=== PATIENT | female | born 1970 | race Caucasian/White ===

== ENCOUNTER 2019-06-19 11:31 | Inpatient (IN) | payer MEDICAID ==
[2019-06-19] MEDS ORDERED: Sodium Chloride 0.9% 10 ML Syringe FLUSH PRN (12:42)
[2019-06-19] MEDS: Dextrose 5%-0.45% NaCl 1,000 ML IV SCH ×2 (13:25→22:53)
[2019-06-19] MEDS: cefTRIAXone 1 GM Vial IVPUSH SCH (13:34)
[2019-06-19] MEDS ORDERED: FLU Vacc QS2019-20(6MOS+)/PF 60 MCG/0.5 ML SYRINGE IM ONE (14:00)
[2019-06-19] MEDS: Albuterol/Ipratropium 3.0-0.5 MG/3 ML Neb Soln NEB PRN ×2 (14:12→20:47)
[2019-06-19] MEDS: Azithromycin 250 MG Tab PO SCH (15:36)
[2019-06-19] MEDS: Acetaminophen 325 MG Tab PO PRN (15:38)
[2019-06-19] MEDS: guaiFENesin/Dextromethorphan 100-10 MG/5 ML Soln 5 ML Cup PO PRN (15:43)
[2019-06-19] MEDS ORDERED: Albuterol 8 GM Inhaler INH PRN (21:01)
[2019-06-19] MEDS ORDERED: Acetaminophen 325 MG Tab PO PRN (21:01)
[2019-06-19] MEDS: Metoprolol Tartrate 25 MG Tab PO SCH (22:24)
[2019-06-19] MEDS: buPROPion 150 MG Tab.ER PO SCH (22:24)
[2019-06-19] MEDS: Naltrexone 50 MG Tab PO SCH (22:24)
[2019-06-19] MEDS: Diazepam 5 MG Tab PO SCH (22:24)
[2019-06-20] MEDS: guaiFENesin/Dextromethorphan 100-10 MG/5 ML Soln 5 ML Cup PO PRN ×4 (00:05→22:11)
[2019-06-20] MEDS: Acetaminophen 325 MG Tab PO PRN ×2 (06:01→13:53)
[2019-06-20] MEDS: Levothyroxine 50 MCG Tab PO SCH ×2 (06:04→06:34)
[2019-06-20] MEDS: Albuterol/Ipratropium 3.0-0.5 MG/3 ML Neb Soln NEB PRN (06:10)
[2019-06-20 07:45] LABS: ANION GAP 12.3 mmol/L (5-15); CHLORIDE,CL 102 mmol/L (98-115); SODIUM,NA 141 mmol/L (136-145)
[2019-06-20] MEDS: Metoprolol Tartrate 25 MG Tab PO SCH ×2 (08:36→20:46)
[2019-06-20] MEDS: Venlafaxine 37.5 MG Cap.ER PO SCH (08:36)
[2019-06-20] MEDS: Omeprazole 20 MG Cap.CR PO SCH (08:38)
[2019-06-20] MEDS: Azithromycin 250 MG Tab PO SCH (08:38)
[2019-06-20] MEDS: Fluticasone Propionate Nasal Spray 16 GM Bottle NASBOTH SCH (08:39)
[2019-06-20] MEDS: Formoterol/Mometasone 100-5 MCG 8.8 GM Inhaler IH SCH ×2 (08:54→20:48)
[2019-06-20] MEDS ORDERED: BREXPIPRAZOLE 0.5 MG PO SCH (09:00)
[2019-06-20] MEDS ORDERED: Enoxaparin 60 MG/0.6 ML Syringe SUBCUT ONE (09:14)
[2019-06-20] MEDS ORDERED: Sodium Chloride 0.9% 1,000 ML IV SCH (09:15)
--- NOTE | 2019-06-20 09:20 | PCM.PN ---
- General Info Date of Service: 06/20/19 Functional Status: Reports: Urinating, Incentive Spirometry. Denies: Tolerating Diet, Ambulating, New Symptoms - Review of Systems General: Reports: Fever (T max 101.3), Weakness, Fatigue, Malaise, Chills, Night Sweats. Denies: Appetite HEENT: Reports: Post Nasal Drip. Denies: Headaches, Visual Changes Pulmonary: Reports: Shortness of Breath, Cough, Wheezing Gastrointestinal: Reports: Nausea Genitourinary: Reports: No Symptoms Musculoskeletal: Reports: No Symptoms Skin: Reports: Diaphoresis. Denies: Rash Neurological: Denies: Confusion Psychiatric: Reports: No Symptoms - Patient Data Vitals - Most Recent: Last Vital Signs Temp 98.6 F 06/20/19 06:12 Pulse 64 06/20/19 08:36 Resp 24 H 06/20/19 06:12 BP 115/68 06/20/19 08:36 Pulse Ox 95 06/20/19 06:12 Weight - Most Recent: 270 lb I&O - Last 24 Hours: Intake & Output 06/19/19 06/20/19 06/20/19 22:59 06:59 14:59 Intake Total 950 1156 Balance 950 1156 Lab Results Last 24 Hours: Laboratory Results - last 24 hr 06/20/19 06/20/19 Range/Units 07:12 07:12 WBC 9.55 (5.00-10.00) 10^3/uL RBC 4.03 (3.80-5.50) 10^6/uL Hgb 9.6 L (12.0-16.0) g/dL Hct 31.1 L (37.0-47.0) % MCV 77.2 L (82.0-92.0) fL MCH 23.8 L (27.0-31.0) pg MCHC 30.9 L (32.0-36.0) g/dL RDW 17.4 H (11.5-14.5) % Plt Count 308 (150-400) 10^3/uL MPV 9.3 (7.4-10.4) fL Immature Gran % (Auto) 0.4 (0.0-5.0) % Neut % (Auto) 67.6 (50.0-70.0) % Lymph % (Auto) 20.0 (20.0-40.0) % Will % (Auto) 10.3 H (2.0-8.0) % Eos % (Auto) 1.3 (1.0-3.0) % Baso % (Auto) 0.4 (0.0-1.0) % Immature Gran # (Auto) 0.04 (0.00-0.50) 10^3/uL Neut # (Auto) 6.46 (2.50-7.00) 10^3/uL Lymph # (Auto) 1.91 (1.00-4.00) 10^3/uL Will # (Auto) 0.98 H (0.10-0.80) 10^3/uL Eos # (Auto) 0.12 (0.10-0.30) 10^3/uL Baso # (Auto) 0.04 (0.00-0.10) 10^3/uL Sodium 141 (136-145) mmol/L Potassium 3.3 (3.3-5.3) mmol/L Chloride 102 (98-115) mmol/L Carbon Dioxide 30.0 (21.0-32.0) mmol/L Anion Gap 12.3 (5-15) mmol/L BUN 8 (6-25) mg/dL Creatinine 0.95 (0.51-1.17) mg/dL Est Cr Clr Drug Dosing 65.88 mL/min Estimated GFR (MDRD) > 60 mL/min Glucose 139 H (75 - 99) mg/dL Calcium 8.5 L (8.7-10.3) mg/dL Total Bilirubin 0.2 (0.2-1.0) mg/dL AST 43 H (15-37) U/L ALT 30 (12-78) U/L Alkaline Phosphatase 77 (46-116) IU/L Total Protein 7.2 (6.4-8.2) g/dL Albumin 2.65 L (3.00-4.80) g/dL Med Orders - Current: Current Medications Acetaminophen (Tylenol) 650 mg PO Q4H PRN PRN Reason: fever/pain Last Admin: 06/20/19 06:01 Dose: 650 mg Albuterol (Ventolin Hfa) 0 gm INH Q4HR PRN PRN Reason: sob Albuterol/Ipratropium (Duoneb 3.0-0.5 Mg/3 Ml) 3 ml NEB Q6HR PRN PRN Reason: Shortness Of Breath/wheezing Last Admin: 06/20/19 06:10 Dose: 3 ml Azithromycin (Zithromax) 250 mg PO DAILY [facility] Stop: 06/22/19 09:01 Last Admin: 06/20/19 08:38 Dose: 250 mg Bupropion HCl (Wellbutrin Xl) 150 mg PO BEDTIME [facility] Last Admin: 06/19/19 22:24 Dose: 150 mg Ceftriaxone Sodium (Rocephin) 1 gm IVPUSH Q24H [facility] Last Admin: 06/19/19 13:34 Dose: 1 gm Diazepam (Valium.) 5 mg PO BEDTIME [facility] Last Admin: 06/19/19 22:24 Dose: 5 mg Fluticasone Propionate (Flonase) 0 gm NASBOTH DAILY [facility] Last Admin: 06/20/19 08:39 Dose: 2 spray Guaifenesin/Phenylephrine HCl (Robitussin Dm) 10 ml PO Q6H PRN PRN Reason: Cough Last Admin: 06/20/19 08:39 Dose: 10 ml Dextrose/Sodium Chloride (Dextrose 5%-1/2 Ns) 1,000 mls @ 100 mls/hr IV ASDIRECTED [facility] Last Admin: 06/19/19 22:53 Dose: 100 mls/hr Levothyroxine Sodium (Synthroid) 50 mcg PO ACBREAKFAST [facility] Last Admin: 06/20/19 06:34 Dose: Not Given Metoprolol Tartrate (Lopressor) 25 mg PO BID [facility] Last Admin: 06/20/19 08:36 Dose: 25 mg Mometasone Furoate/Formoterol Fumar (Dulera 100-5 Mcg) 2 puff IH BIDRT [facility] Last Admin: 06/20/19 08:54 Dose: 2 puff Naltrexone HCl (Naltrexone) 50 mg PO BEDTIME [facility] Last Admin: 06/19/19 22:24 Dose: 50 mg Non-Formulary Medication (Brexpiprazole [Rexulti]) 0.5 mg PO DAILY [facility] Omeprazole (Omeprazole) 40 mg PO DAILY [facility] Last Admin: 06/20/19 08:38 Dose: 40 mg Sodium Chloride (Saline Flush) 10 ml FLUSH Q8HR PRN PRN Reason: keep vein open Last Admin: 06/19/19 13:33 Dose: 10 ml Venlafaxine HCl (Effexor Xr) 225 mg PO DAILY [facility] Last Admin: 06/20/19 08:36 Dose: 225 mg Discontinued Medications Influenza Virus Vaccine (Pharmacy To Dose - Influenza Vaccine) 1 each IM ONETIME ONE Stop: 06/19/19 13:52 Influenza Virus Vaccine (Fluzone Quad 0090-1989 Syringe) 60 mcg IM .ONCE ONE Stop: 06/19/19 14:01 Last Admin: 06/19/19 16:39 Dose: Not Given - Exam Quality Assessment: Supplemental Oxygen (1 Liter oxygen--) General: Alert, Oriented, No Acute Distress Neck: No JVD Lungs: Wheezing Cardiovascular: Regular Rate, Regular Rhythm GI/Abdominal Exam: Soft. No: Distended Back Exam: No: CVA Tenderness (L) Extremities: No: Pedal Edema Peripheral Pulses: 1+: Radial (R), 2+: Radial (L) Skin: Warm, Intact, Moist Psy/Mental Status: Alert, Normal Affect, Normal Mood - Problem List Review Problem List Initiated/Reviewed/Updated: Yes - My Orders Last 24 Hours: My Active Orders 06/19/19 12:55 RESPIRATORY CULT [MREF] Routine 06/19/19 21:00 Metoprolol Tartrate [Lopressor] 25 mg PO BID Naltrexone 50 mg PO BEDTIME buPROPion [Wellbutrin XL] 150 mg PO BEDTIME 06/19/19 21:01 Albuterol [Ventolin HFA] 0 gm INH Q4HR PRN 06/19/19 21:11 diazePAM [Valium] 5 mg PO BEDTIME 06/20/19 07:30 Levothyroxine [Synthroid] 50 mcg PO ACBREAKFAST 06/20/19 08:43 Mometasone/Formoterol [Dulera 100-5 MCG] 2 puff IH BIDRT 06/20/19 09:00 Brexpiprazole [Rexulti] 0.5 mg PO DAILY Fluticasone Propionate [Flonase] 0 gm NASBOTH DAILY Omeprazole 40 mg PO DAILY Venlafaxine [Effexor XR] 225 mg PO DAILY - Plan Plan:: Brief history, see history of present illness for full history/workup. 49-year- old morbid obese patient with a history of asthma was admitted yesterday into inpatient status by Uriah Bucholz PAC for concerns of pneumonia. She was evaluated on June 18 [facility] due to weakness fatigue fevers along with a unproductive/dry cough, diaphoresis decrease appetite. Subsequent labs and chest x-ray indicative of bacterial infection with elevated white count~25, 000, neutrophilia. Chest x-ray appearance of right middle lobe infiltrate. Rounds today No Overnight calls/concerns, patient did not sleep well, temperature early on admission 101.3--now afebrile, overall is feeling better however mildly diaphoretic with poor appetite. Morbid productive cough today. Requiring 1 L oxygen Consulted with patient's pharmacist today. No record of recent description/ refills of Advair. Primary hospital problems Pneumonia,RML, CAP, likely bacterial etiology Asthma, seasonal allergies, mild exacerbation Chronic problems KEVIN, asthma, sleep disturbance, morbid obesity, confounding/contributor Depression GERD Disposition/overall plan/discharge planning --By mouth azithromycin, Rocephin --Prednisone 40 mg PO --Changed to normal saline, Saline lock tonight --Anticipate discharge self-correction in the a.m. --Aggressive pulmonary toileting, Resp c/s to assess CPAP/cleaning schedule/ titrate from oxygen, ambulation, OOB --Nasal/influenza swab 2/2 asthma --Add LMWH, LEYDA/SCD Recommendations at follow-up --She will require extensive motivational interviewing with close follow-up care for intensive lifestyle modifications/eduation --weight loss management, recommend bariatric surgical consultation --mgt plan to begin to titrate from chronic valium --Medication compliance recommendations as no record of recent Advair refills, --Psyche referral --Asthma control test/plan --Influenza vaccination on follow-up --Lipid screening/Diabetes screening since high risk/comorbidity/obesity
[2019-06-20] MEDS ORDERED: Doxepin 25 MG Cap PO PRN (09:21)
[2019-06-20] MEDS: predniSONE 20 MG Tab PO SCH (10:19)
[2019-06-20] MEDS: cefTRIAXone 1 GM Vial IVPUSH SCH (13:55)
[2019-06-20] MEDS: buPROPion 150 MG Tab.ER PO SCH (20:46)
[2019-06-20] MEDS: Diazepam 5 MG Tab PO SCH (20:46)
[2019-06-20] MEDS: Naltrexone 50 MG Tab PO SCH (20:46)
[2019-06-21] MEDS: guaiFENesin/Dextromethorphan 100-10 MG/5 ML Soln 5 ML Cup PO PRN ×2 (06:06→12:58)
[2019-06-21] MEDS: Levothyroxine 50 MCG Tab PO SCH (06:30)
[2019-06-21] MEDS: predniSONE 20 MG Tab PO SCH (07:43)
[2019-06-21] MEDS: Formoterol/Mometasone 100-5 MCG 8.8 GM Inhaler IH SCH (07:44)
[2019-06-21] MEDS: Venlafaxine 37.5 MG Cap.ER PO SCH (08:25)
[2019-06-21] MEDS: Fluticasone Propionate Nasal Spray 16 GM Bottle NASBOTH SCH (08:25)
[2019-06-21] MEDS: Omeprazole 20 MG Cap.CR PO SCH (08:26)
[2019-06-21] MEDS: Azithromycin 250 MG Tab PO SCH (08:26)
[2019-06-21] MEDS: Metoprolol Tartrate 25 MG Tab PO SCH (08:26)
[2019-06-21] MEDS ORDERED: FLU Vacc QS2019-20(6MOS+)/PF 60 MCG/0.5 ML SYRINGE IM ONE (09:00)
[2019-06-21] MEDS: cefTRIAXone 1 GM Vial IVPUSH SCH (12:44)
[2019-06-21] MEDS: Albuterol/Ipratropium 3.0-0.5 MG/3 ML Neb Soln NEB PRN (12:57)
[2019-06-21 15:45] VITALS: BP 112/57; PULSE 63
== END 2019-06-21 18:10 | disposition home or self-care (01) | DRG 194 ==
LOC: KA.MS 12:07
PROVIDERS: ADMIT Physician Assistant; ATTEND Family Medicine
DX: J18.9 Pneumonia, unspecified organism (principal); J45.901 Unspecified asthma with (acute) exacerbation; Z68.44 Body mass index [BMI] 60.0-69.9, adult; J45.40 Moderate persistent asthma, uncomplicated; J40 Bronchitis, not specified as acute or chronic; Z79.82 Long term (current) use of aspirin; Z79.899 Other long term (current) drug therapy; E66.01 Morbid (severe) obesity due to excess calories; G47.33 Obstructive sleep apnea (adult) (pediatric); F32.9 Major depressive disorder, single episode, unspecified; K21.9 Gastro-esophageal reflux disease without esophagitis
CPT/HCPCS: 36415; 80053; 85025; 87040; 87070; 87205; 87804; 94640; A9270-GY; J0696; J1650; J7030; J7042; J7620-GY

== ENCOUNTER 2020-01-13 06:59 | Day surgery (SDC) | payer MEDICAID, OTHER ==
[2020-01-13] MEDS ORDERED: Sodium Chloride 0.9% 10 ML Syringe FLUSH PRN (07:00)
[2020-01-13] MEDS ORDERED: Lidocaine 2% 100 MG/5 ML Syringe IVPUSH ONE (07:00)
[2020-01-13] MEDS ORDERED: Propofol 200 MG/20 ML SDV IV ONE (07:00)
[2020-01-13] MEDS ORDERED: Sodium Chloride 0.9% 1,000 ML IV SCH (07:00)
[2020-01-13] MEDS ORDERED: Ketamine 200 MG/20 ML MDV IV ONE (07:00)
[2020-01-13] MEDS ORDERED: Midazolam 1 MG/ML 2 ML SDV IV ONE (07:00)
[2020-01-13] MEDS ORDERED: Midazolam 1 MG/ML 2 ML SDV ONE (07:04)
[2020-01-13] MEDS ORDERED: Ketamine 200 MG/20 ML MDV ONE (07:04)
[2020-01-13] MEDS ORDERED: Propofol 200 MG/20 ML SDV ONE (07:04)
[2020-01-13] MEDS ORDERED: Lidocaine 2% 100 MG/5 ML Syringe ONE (07:05)
--- NOTE | 2020-01-13 08:32 | PCM.PRNOTE ---
- Free Text/Narrative Note: PROCEDURE PERFORMED: Esophagogastroduodenoscopy with biopsy PRE-PROCEDURE DIAGNOSIS/INDICATION FOR PROCEDURE: Iron deficiency anemia, persistent epigastric pain despite PPI CONSENT: Informed consent was obtained prior to the procedure after discussion of the risks (including pain, bleeding, infection, perforation, need for further procedures, adverse reaction to anesthesia, cardiovascular event), benefits and alternatives and expected outcomes. Verbal consent given and consent form signed. PROCEDURAL PAUSE: Completed SEDATION: Per anesthesia DESCRIPTION OF PROCEDURE: Patient was brought back to the operating room and placed in a left lateral decubitus position. Bite block placed. After adequate sedation and anesthetic was administered, endoscope was inserted into the patient's mouth and was passed easily through the esophagus and stomach into the duodenum without difficulty. Examined duodenum normal appearing. Pylorus normal appearing; biopsies obtained to assess for H.pylori. Stomach, including viewing in retroflexion, normal appearing. 3cm hiatal hernia was present with the gastroesophageal junction at 36cm from the incisors and diaphragmatic at 39cm. Esophagus normal appearing. The scope was removed without difficulty. Patient tolerated the procedure well. No complications. IMPRESSION: Esophagogastroduodenoscopy performed revealing 3cm hiatal hernia. Pathology now pending for H.pylori assessment. PLAN: - Will contact the patient when pathology results received. - Especially with CT abdomen/pelvis revealing cholelithiasis, recommend RUQ ultrasound to further evaluate epigastric pain and consider surgical consultation for cholecystectomy. - Recommend future colonoscopy given last colonoscopy 01/2017 revealing 1cm SSA in the rectosigmoid colon.
[2020-01-13 09:05] VITALS: BP 121/68; PULSE 96
== END 2020-01-13 09:30 | disposition home or self-care (01) ==
LOC: KA.SDS 06:59
PROVIDERS: ATTEND Family Medicine
DX: K44.9 Diaphragmatic hernia without obstruction or gangrene (principal); D50.9 Iron deficiency anemia, unspecified; Z11.59 Encounter for screening for other viral diseases; E11.65 Type 2 diabetes mellitus with hyperglycemia; Z79.899 Other long term (current) drug therapy; K21.9 Gastro-esophageal reflux disease without esophagitis; G47.33 Obstructive sleep apnea (adult) (pediatric); E66.01 Morbid (severe) obesity due to excess calories; Z68.41 Body mass index [BMI] 40.0-44.9, adult; Z79.82 Long term (current) use of aspirin
CPT/HCPCS: 43239; 81025; 82962; 87635; J2001; J2250; J2704; J7030; U0002

== ENCOUNTER 2020-08-01 18:14 | Observation (INO) | payer MEDICAID ==
[2020-08-01] MEDS ORDERED: 50% Dextrose in Water 50 ML Syringe ONE (18:46)
[2020-08-01] MEDS ORDERED: 50% Dextrose in Water 50 ML Syringe IVPUSH ONE (18:57)
[2020-08-01 19:28] LABS: ANION GAP 13.6 mmol/L (5-15); CHLORIDE,CL 98 mmol/L (98-115); SODIUM,NA 136 mmol/L (136-145)
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
[2020-08-01] MEDS ORDERED: Non-Formulary Medication 1 Each (Albuterol 2 PUFF) INH PRN (22:07)
[2020-08-01] MEDS ORDERED: BUPROPION HCL 200 MG PO SCH (22:15)
[2020-08-01] MEDS ORDERED: Sodium Chloride 0.9% 10 ML Syringe FLUSH PRN (22:18)
[2020-08-01] MEDS ORDERED: Albuterol 8 GM Inhaler INH PRN (22:38)
[2020-08-01] MEDS: Metoprolol Succinate 50 MG Tab.ER PO SCH (22:59)
[2020-08-01] MEDS ORDERED: Formoterol/Mometasone 200-5 MCG 8.8 GM Inhaler IH ONE (23:00)
[2020-08-01] MEDS ORDERED: Venlafaxine 37.5 MG Cap.ER PO ONE (23:00)
[2020-08-01] MEDS ORDERED: Venlafaxine 150 MG Cap.ER PO ONE (23:00)
[2020-08-01] MEDS ORDERED: VENLAFAXINE 75 MG PO ONE (23:00)
[2020-08-01] MEDS ORDERED: Montelukast 10 MG Tab PO ONE (23:00)
[2020-08-02] MEDS ORDERED: Lidocaine 2% 100 MG/5 ML Syringe IVPUSH PRN (05:45)
[2020-08-02] MEDS ORDERED: Atropine 0.1 MG/ML 10 ML Syringe IVPUSH PRN (05:45)
[2020-08-02] MEDS ORDERED: Nitroglycerin 0.4 MG Tab.SL SL PRN (05:45)
[2020-08-02] MEDS ORDERED: EPINEPHrine 1:10,000 1 MG/10 ML Syringe IVPUSH PRN (05:45)
[2020-08-02] MEDS: Acetaminophen 325 MG Tab PO PRN ×2 (05:52→11:32)
[2020-08-02] MEDS: guaiFENesin/Dextromethorphan 100-10 MG/5 ML Soln 5 ML Cup PO PRN ×2 (05:52→11:32)
[2020-08-02] MEDS: Levothyroxine 50 MCG Tab PO SCH ×2 (05:53→06:30)
[2020-08-02 07:21] LABS: ANION GAP 13.9 mmol/L (5-15); CHLORIDE,CL 100 mmol/L (98-115); SODIUM,NA 136 mmol/L (136-145)
[2020-08-02] MEDS ORDERED: Formoterol/Mometasone 200-5 MCG 8.8 GM Inhaler IH SCH (08:00)
[2020-08-02] MEDS: Metoprolol Succinate 50 MG Tab.ER PO SCH (08:17)
[2020-08-02 08:20] VITALS: PULSE 66
[2020-08-02] MEDS ORDERED: BUPROPION HCL 200 MG PO SCH (09:00)
[2020-08-02] MEDS ORDERED: Omeprazole 20 MG Cap.CR PO SCH (09:00)
[2020-08-02] MEDS ORDERED: Iron Polysaccharides Complex 150 MG Cap PO SCH (09:00)
[2020-08-02 10:14] VITALS: BP 136/85
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
--- NOTE | 2020-08-02 12:19 | PCM.DCSUM1 ---
Discharge Summary - Discharge Data Discharge Date: 08/02/20 Discharge Disposition: Home, Self-Care 01 Condition: Good - Referral to Home Health Primary Care Physician: Orlando Parsons [employer] TECHNICIAN - Discharge Plan Home Medications: Home Meds Albuterol Sulfate [Proair Hfa] 2 puff INH Q4HR PRN 04/25/16 [History] Doxepin [SINEquan] 75 mg PO BEDTIME PRN 04/25/16 [History] Fluticasone Propionate [Flonase] 1 spray INH BID PRN 04/25/16 [History] Omeprazole 20 mg PO DAILY 04/25/16 [History] Venlafaxine [Effexor XR] 75 mg PO BEDTIME 04/25/16 [History] Levothyroxine [Synthroid] 50 mcg PO ACBREAKFAST #60 tablet 04/26/16 [Rx] diazePAM [Valium] 10 mg PO BEDTIME 01/02/19 [History] Acetaminophen [Tylenol] 650 mg PO Q4H PRN tablet 01/03/19 [Rx] Albuterol/Ipratropium [DuoNeb 3.0-0.5 MG/3 ML] 3 ml INH Q6H PRN 01/09/20 [History] Iron Polysaccharides Complex [Ferrex 150] 150 mg PO DAILY 01/09/20 [History] Metoprolol Succinate [Toprol Xl] 25 mg PO BID 01/09/20 [History] Montelukast Sodium [Singulair] 10 mg PO BEDTIME 01/09/20 [History] Non-Formulary Medication [NF Drug] 1 applic TOP BID PRN 01/09/20 [History] Fluticasone Propion/Salmeterol [Fluticasone-Salmeterol 500-50] 1 puff IH BID@01/10/20 [History] Ibuprofen 1 - 3 tab PO Q6H PRN 01/10/20 [History] buPROPion HCL [Wellbutrin SR] 200 mg PO DAILY 05/01/20 [History] Brexpiprazole [Rexulti] 0.5 mg PO BEDTIME 08/01/20 [History] Venlafaxine [Effexor XR] 150 mg PO BEDTIME 08/01/20 [History] diazePAM [Valium] 5 mg PO ASDIRECTED PRN 08/01/20 [History] Forms: ED Department Discharge Referrals: Orlando Parsons, [employer] TECHNICIAN [Primary Care Provider] - - Patient Data Vitals - Most Recent: Last Vital Signs Temp 97.9 F 08/02/20 10:14 Pulse 66 08/02/20 10:14 Resp 18 08/02/20 10:14 BP 136/85 08/02/20 10:14 Pulse Ox 94 L 08/02/20 10:14 Weight - Most Recent: 266 lb 12.8 oz I&O - Last 24 hours: Intake & Output 08/01/20 08/02/20 08/02/20 22:59 06:59 14:59 Intake Total 600 Balance 600 Lab Results - Last 24 hrs: Laboratory Results - last 24 hr 08/01/20 08/01/20 08/01/20 Range/Units 18:37 18:37 19:01 WBC 9.67 (5.00-10.00) 10^3/uL RBC 4.62 (3.80-5.50) 10^6/uL Hgb 12.7 D (12.0-16.0) g/dL Hct 39.4 (37.0-47.0) % MCV 85.3 D (82.0-92.0) fL MCH 27.5 (27.0-31.0) pg MCHC 32.2 (32.0-36.0) g/dL RDW 14.4 (11.5-14.5) % Plt Count 284 (150-400) 10^3/uL MPV 10.3 (7.4-10.4) fL Immature Gran % (Auto) 0.2 (0.0-5.0) % Neut % (Auto) 64.0 (50.0-70.0) % Lymph % (Auto) 26.5 (20.0-40.0) % [place] % (Auto) 6.9 (2.0-8.0) % Eos % (Auto) 1.9 (1.0-3.0) % Baso % (Auto) 0.5 (0.0-1.0) % Neut # (Auto) 6.19 (2.50-7.00) 10^3/uL Lymph # (Auto) 2.56 (1.00-4.00) 10^3/uL [place] # (Auto) 0.67 (0.10-0.80) 10^3/uL Eos # (Auto) 0.18 (0.10-0.30) 10^3/uL Baso # (Auto) 0.05 (0.00-0.10) 10^3/uL Immature Gran # (Auto) 0.02 (0.00-0.50) 10^3/uL Sodium 136 (136-145) mmol/L Potassium 3.7 (3.3-5.3) mmol/L Chloride 98 (98-115) mmol/L Carbon Dioxide 28.1 (21.0-32.0) mmol/L Anion Gap 13.6 (5-15) mmol/L BUN 6 (6-25) mg/dL Creatinine 0.67 (0.51-1.17) mg/dL Est Cr Clr Drug Dosing 92.40 mL/min Estimated GFR (MDRD) > 60 mL/min Glucose 148 H (75 - 99) mg/dL POC Glucose 56 L (74-100) mg/dL Calcium 8.5 L (8.7-10.3) mg/dL Magnesium (1.8-2.4) mg/dL Total Bilirubin 0.5 (0.2-1.0) mg/dL AST 59 H (15-37) U/L ALT 73 (12-78) U/L Alkaline Phosphatase 112 (46-116) IU/L Troponin I < 0.04 (0.00-0.070) ng/mL Total Protein 7.6 (6.4-8.2) g/dL Albumin 3.05 (3.00-4.80) g/dL SARS CoV-2 RNA Rapid OTILIA (NEGATIVE) 08/01/20 08/01/20 08/01/20 Range/Units 19:34 19:57 20:42 WBC (5.00-10.00) 10^3/uL RBC (3.80-5.50) 10^6/uL Hgb (12.0-16.0) g/dL Hct (37.0-47.0) % MCV (82.0-92.0) fL MCH (27.0-31.0) pg MCHC (32.0-36.0) g/dL RDW (11.5-14.5) % Plt Count (150-400) 10^3/uL MPV (7.4-10.4) fL Immature Gran % (Auto) (0.0-5.0) % Neut % (Auto) (50.0-70.0) % Lymph % (Auto) (20.0-40.0) % [place] % (Auto) (2.0-8.0) % Eos % (Auto) (1.0-3.0) % Baso % (Auto) (0.0-1.0) % Neut # (Auto) (2.50-7.00) 10^3/uL Lymph # (Auto) (1.00-4.00) 10^3/uL [place] # (Auto) (0.10-0.80) 10^3/uL Eos # (Auto) (0.10-0.30) 10^3/uL Baso # (Auto) (0.00-0.10) 10^3/uL Immature Gran # (Auto) (0.00-0.50) 10^3/uL Sodium (136-145) mmol/L Potassium (3.3-5.3) mmol/L Chloride (98-115) mmol/L Carbon Dioxide (21.0-32.0) mmol/L Anion Gap (5-15) mmol/L BUN (6-25) mg/dL Creatinine (0.51-1.17) mg/dL Est Cr Clr Drug Dosing mL/min Estimated GFR (MDRD) mL/min Glucose (75 - 99) mg/dL POC Glucose 243 H 254 H (74-100) mg/dL Calcium (8.7-10.3) mg/dL Magnesium (1.8-2.4) mg/dL Total Bilirubin (0.2-1.0) mg/dL AST (15-37) U/L ALT (12-78) U/L Alkaline Phosphatase (46-116) IU/L Troponin I (0.00-0.070) ng/mL Total Protein (6.4-8.2) g/dL Albumin (3.00-4.80) g/dL SARS CoV-2 RNA Rapid OTILIA Positive H (NEGATIVE) 08/02/20 08/02/20 08/02/20 Range/Units 02:39 06:20 06:20 WBC (5.00-10.00) 10^3/uL RBC (3.80-5.50) 10^6/uL Hgb (12.0-16.0) g/dL Hct (37.0-47.0) % MCV (82.0-92.0) fL MCH (27.0-31.0) pg MCHC (32.0-36.0) g/dL RDW (11.5-14.5) % Plt Count (150-400) 10^3/uL MPV (7.4-10.4) fL Immature Gran % (Auto) (0.0-5.0) % Neut % (Auto) (50.0-70.0) % Lymph % (Auto) (20.0-40.0) % [place] % (Auto) (2.0-8.0) % Eos % (Auto) (1.0-3.0) % Baso % (Auto) (0.0-1.0) % Neut # (Auto) (2.50-7.00) 10^3/uL Lymph # (Auto) (1.00-4.00) 10^3/uL [place] # (Auto) (0.10-0.80) 10^3/uL Eos # (Auto) (0.10-0.30) 10^3/uL Baso # (Auto) (0.00-0.10) 10^3/uL Immature Gran # (Auto) (0.00-0.50) 10^3/uL Sodium 136 (136-145) mmol/L Potassium 3.5 (3.3-5.3) mmol/L Chloride 100 (98-115) mmol/L Carbon Dioxide 25.6 (21.0-32.0) mmol/L Anion Gap 13.9 (5-15) mmol/L BUN 7 (6-25) mg/dL Creatinine 0.66 (0.51-1.17) mg/dL Est Cr Clr Drug Dosing 93.80 mL/min Estimated GFR (MDRD) > 60 mL/min Glucose 178 H (75 - 99) mg/dL POC Glucose 175 H (74-100) mg/dL Calcium 8.4 L (8.7-10.3) mg/dL Magnesium (1.8-2.4) mg/dL Total Bilirubin (0.2-1.0) mg/dL AST (15-37) U/L ALT (12-78) U/L Alkaline Phosphatase (46-116) IU/L Troponin I < 0.04 (0.00-0.070) ng/mL Total Protein (6.4-8.2) g/dL Albumin (3.00-4.80) g/dL SARS CoV-2 RNA Rapid OTILIA (NEGATIVE) 08/02/20 08/02/20 08/02/20 Range/Units 06:20 08:13 10:10 WBC 8.56 (5.00-10.00) 10^3/uL RBC 4.51 (3.80-5.50) 10^6/uL Hgb 12.3 (12.0-16.0) g/dL Hct 37.8 (37.0-47.0) % MCV 83.8 (82.0-92.0) fL MCH 27.3 (27.0-31.0) pg MCHC 32.5 (32.0-36.0) g/dL RDW 14.3 (11.5-14.5) % Plt Count 276 (150-400) 10^3/uL MPV 10.2 (7.4-10.4) fL Immature Gran % (Auto) 0.2 (0.0-5.0) % Neut % (Auto) 62.5 (50.0-70.0) % Lymph % (Auto) 28.5 (20.0-40.0) % [place] % (Auto) 6.5 (2.0-8.0) % Eos % (Auto) 1.9 (1.0-3.0) % Baso % (Auto) 0.4 (0.0-1.0) % Neut # (Auto) 5.35 (2.50-7.00) 10^3/uL Lymph # (Auto) 2.44 (1.00-4.00) 10^3/uL [place] # (Auto) 0.56 (0.10-0.80) 10^3/uL Eos # (Auto) 0.16 (0.10-0.30) 10^3/uL Baso # (Auto) 0.03 (0.00-0.10) 10^3/uL Immature Gran # (Auto) 0.02 (0.00-0.50) 10^3/uL Sodium (136-145) mmol/L Potassium (3.3-5.3) mmol/L Chloride (98-115) mmol/L Carbon Dioxide (21.0-32.0) mmol/L Anion Gap (5-15) mmol/L BUN (6-25) mg/dL Creatinine (0.51-1.17) mg/dL Est Cr Clr Drug Dosing mL/min Estimated GFR (MDRD) mL/min Glucose (75 - 99) mg/dL POC Glucose 114 H (74-100) mg/dL Calcium (8.7-10.3) mg/dL Magnesium 1.8 (1.8-2.4) mg/dL Total Bilirubin (0.2-1.0) mg/dL AST (15-37) U/L ALT (12-78) U/L Alkaline Phosphatase (46-116) IU/L Troponin I (0.00-0.070) ng/mL Total Protein (6.4-8.2) g/dL Albumin (3.00-4.80) g/dL SARS CoV-2 RNA Rapid OTILIA (NEGATIVE) 08/02/20 08/02/20 Range/Units 10:10 11:55 WBC (5.00-10.00) 10^3/uL RBC (3.80-5.50) 10^6/uL Hgb (12.0-16.0) g/dL Hct (37.0-47.0) % MCV (82.0-92.0) fL MCH (27.0-31.0) pg MCHC (32.0-36.0) g/dL RDW (11.5-14.5) % Plt Count (150-400) 10^3/uL MPV (7.4-10.4) fL Immature Gran % (Auto) (0.0-5.0) % Neut % (Auto) (50.0-70.0) % Lymph % (Auto) (20.0-40.0) % [place] % (Auto) (2.0-8.0) % Eos % (Auto) (1.0-3.0) % Baso % (Auto) (0.0-1.0) % Neut # (Auto) (2.50-7.00) 10^3/uL Lymph # (Auto) (1.00-4.00) 10^3/uL [place] # (Auto) (0.10-0.80) 10^3/uL Eos # (Auto) (0.10-0.30) 10^3/uL Baso # (Auto) (0.00-0.10) 10^3/uL Immature Gran # (Auto) (0.00-0.50) 10^3/uL Sodium (136-145) mmol/L Potassium (3.3-5.3) mmol/L Chloride (98-115) mmol/L Carbon Dioxide (21.0-32.0) mmol/L Anion Gap (5-15) mmol/L BUN (6-25) mg/dL Creatinine (0.51-1.17) mg/dL Est Cr Clr Drug Dosing mL/min Estimated GFR (MDRD) mL/min Glucose (75 - 99) mg/dL POC Glucose 152 H (74-100) mg/dL Calcium (8.7-10.3) mg/dL Magnesium (1.8-2.4) mg/dL Total Bilirubin (0.2-1.0) mg/dL AST (15-37) U/L ALT (12-78) U/L Alkaline Phosphatase (46-116) IU/L Troponin I < 0.04 (0.00-0.070) ng/mL Total Protein (6.4-8.2) g/dL Albumin (3.00-4.80) g/dL SARS CoV-2 RNA Rapid OTILIA (NEGATIVE) Med Orders - Current: Current Medications Acetaminophen (Tylenol) 650 mg PO Q4H PRN PRN Reason: Fever or Pain Last Admin: 08/02/20 11:32 Dose: 650 mg Documented by: Albuterol (Ventolin Hfa) 0 gm INH Q4HR PRN PRN Reason: sob Atropine Sulfate (Atropine 0.1 Mg/Ml) 0 mg IVPUSH ASDIRECTED PRN PRN Reason: Heart. Epinephrine HCl (Epinephrine 1:10,000) 1 mg IVPUSH ASDIRECTED PRN PRN Reason: Heart. Guaifenesin/Phenylephrine HCl (Robitussin Dm) 10 ml PO Q4H PRN PRN Reason: Cough Last Admin: 08/02/20 11:32 Dose: 10 ml Documented by: Levothyroxine Sodium (Synthroid) 50 mcg PO ACBREAKFAST [facility] Last Admin: 08/02/20 06:30 Dose: Not Given Documented by: Lidocaine HCl (Xylocaine 2%) 0 mg IVPUSH ASDIRECTED PRN PRN Reason: Heart. Metoprolol Succinate (Toprol Xl) 25 mg PO BID [facility] Last Admin: 08/02/20 08:17 Dose: 25 mg Documented by: Mometasone Furoate/Formoterol Fumar (Dulera 200-5 Mcg) 2 puff IH BID@ [facility] Last Admin: 08/02/20 08:20 Dose: 2 puff Documented by: Montelukast Sodium (Singulair) 10 mg PO BEDTIME NIESHA Nitroglycerin (Nitrostat) 0.4 mg SL ASDIRECTED PRN PRN Reason: Heart. Non-Formulary Medication (Brexpiprazole [Rexulti]) 0.5 mg PO BEDTIME NIESHA Non-Formulary Medication (Bupropion Hcl [Wellbutrin Sr]) 200 mg PO DAILY NIESHA Omeprazole (Omeprazole) 20 mg PO DAILY [facility] Last Admin: 08/02/20 08:17 Dose: 20 mg Documented by: Polysaccharide Iron Complex (Ferrex 150) 150 mg PO DAILY [facility] Last Admin: 08/02/20 08:17 Dose: 150 mg Documented by: Sodium Chloride (Saline Flush) 10 ml FLUSH Q8HR PRN PRN Reason: keep vein open Venlafaxine HCl (Effexor Xr) 75 mg PO BEDTIME NIESHA Venlafaxine HCl (Effexor Xr) 150 mg PO BEDTIME NIESHA Discontinued Medications Dextrose/Water (Dextrose 50% In Water) Confirm Administered Dose 50 ml .ROUTE .STK-MED ONE Stop: 08/01/20 18:47 Last Admin: 08/01/20 19:05 Dose: Not Given Documented by: Dextrose/Water (Dextrose 50% In Water) 50 ml IVPUSH ONETIME ONE Stop: 08/01/20 18:58 Last Admin: 08/01/20 18:50 Dose: 50 ml Documented by: Mometasone Furoate/Formoterol Fumar (Dulera 200-5 Mcg) 2 puff IH ONETIME ONE Stop: 08/01/20 23:01 Last Admin: 08/01/20 22:58 Dose: 2 puff Documented by: Montelukast Sodium (Singulair) 10 mg PO ONETIME ONE Stop: 08/01/20 23:01 Last Admin: 08/01/20 23:00 Dose: 10 mg Documented by: Non-Formulary Medication (Bupropion Hcl [Wellbutrin Sr]) 200 mg PO BID NIESHA Last Admin: 08/01/20 22:57 Dose: Not Given Documented by: Non-Formulary Medication (Albuterol) 2 puff INH Q4HR PRN PRN Reason: sob Non-Formulary Medication (Venlafaxine [Effexor Xr]) 75 mg PO ONETIME ONE Stop: 08/01/20 23:01 Venlafaxine HCl (Effexor Xr) 150 mg PO ONETIME ONE Stop: 08/01/20 23:01 Last Admin: 08/01/20 22:59 Dose: 150 mg Documented by: Venlafaxine HCl (Effexor Xr) 75 mg PO ONETIME ONE Stop: 08/01/20 23:01 Last Admin: 08/01/20 22:59 Dose: 75 mg Documented by:
[2020-08-02] MEDS ORDERED: Venlafaxine 150 MG Cap.ER PO SCH (21:00)
[2020-08-02] MEDS ORDERED: Venlafaxine 37.5 MG Cap.ER PO SCH (21:00)
[2020-08-02] MEDS ORDERED: BREXPIPRAZOLE 0.5 MG PO SCH (21:00)
[2020-08-02] MEDS ORDERED: Montelukast 10 MG Tab PO SCH (21:00)
== END 2020-08-02 14:15 | disposition home or self-care (01) ==
LOC: KA.ED 18:14 → KA.MS 18:15 → UNDOADMOB 18:15 → KA.MS 20:37 → UNDODISOB 08-02 14:15
PROVIDERS: ADMIT Physician Assistant; ATTEND Nurse Practitioner Family
DX: U07.1 COVID-19 (principal); E78.00 Pure hypercholesterolemia, unspecified; I10 Essential (primary) hypertension; E66.9 Obesity, unspecified; J45.909 Unspecified asthma, uncomplicated; G47.30 Sleep apnea, unspecified; F41.9 Anxiety disorder, unspecified; F32.9 Major depressive disorder, single episode, unspecified; E11.9 Type 2 diabetes mellitus without complications; E03.9 Hypothyroidism, unspecified; Z98.890 Other specified postprocedural states; Z79.899 Other long term (current) drug therapy; Z79.890 Hormone replacement therapy; Z68.41 Body mass index [BMI] 40.0-44.9, adult
CPT/HCPCS: 36415; 80048; 80053; 82962; 83735; 84484; 85025; 93005; 96374; 99285; 99285-25; A9270-GY; G0378; U0002

== ENCOUNTER 2020-12-05 18:54 | Emergency (ER) | payer MEDICAID ==
[2020-12-05] MEDS ORDERED: Sodium Chloride 0.9% 10 ML Syringe FLUSH PRN (19:14)
[2020-12-05] MEDS: Sodium Chloride 0.9% 1,000 ML IV ONE (19:26)
[2020-12-05] MEDS: Ondansetron 4 MG/2 ML SDV IVPUSH ONE (19:26)
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
[2020-12-05 20:08] LABS: ANION GAP 17.5 mmol/L (5-15); CHLORIDE,CL 102 mmol/L (98-107); SODIUM,NA 140 mmol/L (136-145)
[2020-12-05 20:27] VITALS: BP 153/75; PULSE 61
[2020-12-05] MEDS: Ondansetron 4 MG Tab.DIS PO ONE (20:41)
== END 2020-12-05 20:45 | disposition home or self-care (01) ==
LOC: KA.ED 18:54
DX: E86.0 Dehydration (principal); R11.2 Nausea with vomiting, unspecified; E78.5 Hyperlipidemia, unspecified; E66.9 Obesity, unspecified; I10 Essential (primary) hypertension; K21.9 Gastro-esophageal reflux disease without esophagitis; Z68.41 Body mass index [BMI] 40.0-44.9, adult; E11.9 Type 2 diabetes mellitus without complications; E03.9 Hypothyroidism, unspecified; Z79.899 Other long term (current) drug therapy
CPT/HCPCS: 36415; 80053; 81001; 85025; 87086; 96374; 99284; 99284-25; A9270-GY; J2405; J7030

== ENCOUNTER 2021-12-05 13:28 | Emergency (ER) | payer MEDICAID ==
[2021-12-05] MEDS ORDERED: Sodium Chloride 0.9% 10 ML Syringe FLUSH PRN (13:38)
[2021-12-05] MEDS: Sodium Chloride 0.9% 1,000 ML IV ONE (14:05)
[2021-12-05] MEDS: Ondansetron 4 MG/2 ML SDV IVPUSH ONE (14:15)
[2021-12-05] MEDS: HYDROmorphone 1 MG/ML Syringe IVPUSH ONE (14:18)
[2021-12-05 14:19] LABS: CHLORIDE,CL 101 mmol/L (98-107); SODIUM,NA 137 mmol/L (136-145)
[2021-12-05] MEDS: Iopamidol 755 Mg/ML 75 ML Bottle IVPUSH ONE (14:30)
[2021-12-05] MEDS: Sodium Chloride 0.9% 50 ML IV SCH (14:30)
[2021-12-05 15:24] VITALS: BP 142/100; PULSE 97
[2021-12-05] MEDS: Ciprofloxacin 500 MG Tab PO SCH (15:52)
[2021-12-05] MEDS: Acetaminophen/HYDROcodone 325-10 MG Tab PO PRN (15:54)
[2021-12-05] MEDS: metroNIDAZOLE 500 MG Tab PO ONE (15:55)
[2021-12-05] MEDS: Ciprofloxacin 500 MG Tab ONE (15:56)
== END 2021-12-05 16:10 | disposition home or self-care (01) ==
LOC: KA.ED 13:28
DX: K57.32 Diverticulitis of large intestine without perforation or abscess without bleeding (principal); E78.00 Pure hypercholesterolemia, unspecified; I10 Essential (primary) hypertension; K21.9 Gastro-esophageal reflux disease without esophagitis; E11.9 Type 2 diabetes mellitus without complications; E03.9 Hypothyroidism, unspecified; E66.9 Obesity, unspecified; Z68.41 Body mass index [BMI] 40.0-44.9, adult; Z86.16 Personal history of COVID-19
CPT/HCPCS: 36415; 74177; 80053; 81001; 83690; 85025; 96374; 96375; 99284; 99284-25; A9270-GY; J1170; J2405; J7030; Q9967

== ENCOUNTER 2021-12-24 16:26 | Emergency (ER) | payer MEDICAID ==
[2021-12-24] MEDS ORDERED: Ondansetron 4 MG/2 ML SDV ONE (16:40)
[2021-12-24] MEDS ORDERED: Sodium Chloride 0.9% 1,000 ML ONE ×2 (16:40→17:37)
[2021-12-24] MEDS: Sodium Chloride 0.9% 1,000 ML IV ONE ×2 (16:43→17:44)
[2021-12-24] MEDS: Ondansetron 4 MG/2 ML SDV IVPUSH ONE (16:44)
[2021-12-24 16:52] LABS: ANION GAP 14.7 mmol/L (5-15); CHLORIDE,CL 100 mmol/L (98-107); SODIUM,NA 138 mmol/L (136-145)
[2021-12-24] MEDS ORDERED: Ciprofloxacin in D5W 200 ML ONE (17:43)
[2021-12-24] MEDS: Ciprofloxacin in D5W 400 MG in Premix Bag 1 BAG IV ONE ×2 (17:45)
[2021-12-24] MEDS: Sodium Chloride 0.9% 50 ML IV SCH (18:07)
[2021-12-24] MEDS: Iopamidol 755 Mg/ML 100 ML Bottle IV ONE (18:07)
[2021-12-24 19:14] VITALS: BP 126/62; PULSE 79
[2021-12-24] MEDS: Sulfamethoxazole/Trimethoprim 800-160 MG Tab PO ONE (19:29)
[2021-12-24] MEDS: Ondansetron 4 MG Tab.DIS PO ONE (19:30)
== END 2021-12-24 19:45 | disposition home or self-care (01) ==
LOC: KA.ED 16:26
DX: N39.0 Urinary tract infection, site not specified (principal); K57.32 Diverticulitis of large intestine without perforation or abscess without bleeding; R11.2 Nausea with vomiting, unspecified; E78.00 Pure hypercholesterolemia, unspecified; I10 Essential (primary) hypertension; K21.9 Gastro-esophageal reflux disease without esophagitis; Z79.899 Other long term (current) drug therapy
CPT/HCPCS: 36415; 74177; 80053; 81001; 85025; 86140; 87086; 96361; 96365; 96375; 99284; A9270; J0744; J2405; J7030; Q9967

== ENCOUNTER 2022-07-12 11:18 | Emergency (ER) | payer MEDICAID ==
[2022-07-12] MEDS ORDERED: Aspirin 81 MG Tab.Chew PO ONE (11:57)
[2022-07-12] MEDS: Nitroglycerin 0.4 MG Tab.SL SL PRN ×3 (12:00→12:25)
[2022-07-12 12:07] LABS: ANION GAP 10.4 mmol/L (5-15)
[2022-07-12 14:34] VITALS: BP 125/71; PULSE 84
[2022-07-12] MEDS ORDERED: Iopamidol 755 Mg/ML 100 ML Bottle IV ONE (14:43)
[2022-07-12] MEDS ORDERED: Sodium Chloride 0.9% 100 ML IV SCH (14:45)
== END 2022-07-12 15:45 | disposition home or self-care (01) ==
LOC: KA.ED 11:18
DX: R07.89 Other chest pain (principal); R11.0 Nausea; E78.00 Pure hypercholesterolemia, unspecified; I10 Essential (primary) hypertension; J45.909 Unspecified asthma, uncomplicated; K21.9 Gastro-esophageal reflux disease without esophagitis; M19.90 Unspecified osteoarthritis, unspecified site; E11.9 Type 2 diabetes mellitus without complications; E03.9 Hypothyroidism, unspecified; E66.9 Obesity, unspecified; Z68.41 Body mass index [BMI] 40.0-44.9, adult; Z79.899 Other long term (current) drug therapy
CPT/HCPCS: 36415; 71045; 71275; 80053; 84484; 85025; 85379; 99285; A9270-GY; Q9967

== ENCOUNTER 2023-10-04 02:43 | Emergency (ER) | payer MEDICAID ==
[2023-10-04 03:30] LABS: BASOPHILS ABSOLUTE AUTO 0.05 10^3/uL (0.00-0.10); BASOPHILS PERCENT AUTO 0.4 % (0.0-1.0); EOSINOPHILS ABSOLUTE AUTO 0.13 10^3/uL (0.10-0.30); EOSINOPHILS PERCENT AUTO 1.1 % (1.0-3.0); HEMATOCRIT 49.6 % (37.0-47.0); HEMOGLOBIN 15.6 g/dL (12.0-16.0); IMMATURE GRAN ABSOLUTE AUTO 0.06 10^3/uL (0.00-0.50); IMMATURE GRAN PERCENT AUTO 0.5 % (0.0-5.0); LYMPHOCYTES ABSOLUTE AUTO 3.07 10^3/uL (1.00-4.00); LYMPHOCYTES PERCENT AUTO 27.1 % (20.0-40.0); MEAN CORPUSCULAR HEMOGLOBIN 26.4 pg (27.0-31.0); MEAN CORPUSCULAR HGB CONC 31.5 g/dL (32.0-36.0); MEAN CORPUSCULAR VOLUME 83.9 fL (82.0-92.0); MEAN PLATELET VOLUME 9.1 fL (7.4-10.4); MONOCYTES ABSOLUTE AUTO 0.66 10^3/uL (0.10-0.80); MONOCYTES PERCENT AUTO 5.8 % (2.0-8.0); NEUTROPHILS ABSOLUTE AUTO 7.35 10^3/uL (2.50-7.00); NEUTROPHILS PERCENT AUTO 65.1 % (50.0-70.0); PLATELET COUNT,PLT 357 10^3/uL (150-400); RED BLOOD CELL COUNT 5.91 10^6/uL (3.80-5.50); RED CELL DISTRIBUTION WIDTH 15.9 % (11.5-14.5); WHITE BLOOD CELL COUNT,WBC 11.32 10^3/uL (5.00-10.00)
[2023-10-04 03:45] LABS: ALANINE AMINOTRANSFERASE,ALT 71 U/L (14-63); ALBUMIN 3.64 g/dL (3.40-5.00); ALKALINE PHOSPHATASE 133 U/L (46-116); ANION GAP 18.7 mmol/L (5-15); ASPARTATE AMNIOTRANSFERASE,AST 47 U/L (15-37); BILIRUBIN TOTAL 0.5 mg/dL (0.2-1.0); BLOOD UREA NITROGEN,BUN 12 mg/dL (7-18); CALCIUM 8.9 mg/dL (8.7-10.3); CARBON DIOXIDE,CO2 25.7 mmol/L (21.0-32.0); CHLORIDE,CL 97 mmol/L (98-107); CREATININE 0.72 mg/dL (0.51-1.17); ESTIMATED GFR 101 mL/min (>=60); ETHANOL BLOOD MEDICAL 138 mg/dL (NOT DETECTED); GLUCOSE RANDOM 174 mg/dL (70-140); POTASSIUM,K 4.4 mmol/L (3.5-5.1); PROTEIN TOTAL,TP 8.8 g/dL (6.4-8.2); SODIUM,NA 137 mmol/L (136-145)
[2023-10-04] MEDS: Sodium Chloride 0.9% 10 ML Syringe FLUSH PRN (04:25)
[2023-10-04 05:11] VITALS: BP 136/90; PULSE 92
== END 2023-10-04 04:32 ==
LOC: KA.ED 02:43 → SUPCPDRO 02:43 → KA.ED 04:32
DX: I63.9 Cerebral infarction, unspecified (principal); I10 Essential (primary) hypertension; E78.5 Hyperlipidemia, unspecified; K21.9 Gastro-esophageal reflux disease without esophagitis; E11.9 Type 2 diabetes mellitus without complications; E03.9 Hypothyroidism, unspecified; E66.9 Obesity, unspecified; Z86.16 Personal history of COVID-19; Z79.899 Other long term (current) drug therapy; Z79.84 Long term (current) use of oral hypoglycemic drugs
CPT/HCPCS: 36415; 70450; 72125; 80053; 80307; 84484; 85025; 93005; 93010; 99284; 99285; J3490

== ENCOUNTER 2024-05-11 16:33 | Emergency (ER) | payer MEDICAID ==
[2024-05-11] MEDS ORDERED: Sodium Chloride 0.9% 10 ML Syringe FLUSH PRN (16:49)
[2024-05-11 17:03] LABS: BASOPHILS ABSOLUTE AUTO 0.03 10^3/uL (0.00-0.10); BASOPHILS PERCENT AUTO 0.4 % (0.0-1.0); EOSINOPHILS ABSOLUTE AUTO 0.14 10^3/uL (0.10-0.30); EOSINOPHILS PERCENT AUTO 1.9 % (1.0-3.0); HEMOGLOBIN 14.9 g/dL (12.0-16.0); IMMATURE GRAN ABSOLUTE AUTO 0.01 10^3/uL (0.00-0.50); IMMATURE GRAN PERCENT AUTO 0.1 % (0.0-5.0); LYMPHOCYTES ABSOLUTE AUTO 1.83 10^3/uL (1.00-4.00); LYMPHOCYTES PERCENT AUTO 25.4 % (20.0-40.0); MEAN CORPUSCULAR HEMOGLOBIN 29.4 pg (27.0-31.0); MEAN CORPUSCULAR HGB CONC 33.1 g/dL (32.0-36.0); MEAN CORPUSCULAR VOLUME 88.8 fL (82.0-92.0); MEAN PLATELET VOLUME 10.4 fL (7.4-10.4); MONOCYTES ABSOLUTE AUTO 0.41 10^3/uL (0.10-0.80); MONOCYTES PERCENT AUTO 5.7 % (2.0-8.0); NEUTROPHILS ABSOLUTE AUTO 4.78 10^3/uL (2.50-7.00); NEUTROPHILS PERCENT AUTO 66.5 % (50.0-70.0); PLATELET COUNT,PLT 231 10^3/uL (150-400); RED BLOOD CELL COUNT 5.07 10^6/uL (3.80-5.50); RED CELL DISTRIBUTION WIDTH 12.9 % (11.5-14.5)
[2024-05-11 17:23] LABS: ALANINE AMINOTRANSFERASE,ALT 101 U/L (14-63); ALBUMIN 3.01 g/dL (3.40-5.00); ALKALINE PHOSPHATASE 123 U/L (46-116); AMYLASE 31 U/L (25-125); ASPARTATE AMNIOTRANSFERASE,AST 63 U/L (15-37); BILIRUBIN TOTAL 0.6 mg/dL (0.2-1.0); BLOOD UREA NITROGEN,BUN 9 mg/dL (7-18); CALCIUM 8.8 mg/dL (8.7-10.3); CARBON DIOXIDE,CO2 28.7 mmol/L (21.0-32.0); CHLORIDE,CL 98 mmol/L (98-107); CREATININE 0.68 mg/dL (0.51-1.17); GLUCOSE RANDOM 356 mg/dL (70-140); LIPASE 48 U/L (16-77); MAGNESIUM 1.7 mg/dL (1.8-2.4); POTASSIUM,K 3.7 mmol/L (3.5-5.1); PROTEIN TOTAL,TP 7.4 g/dL (6.4-8.2); SODIUM,NA 135 mmol/L (136-145)
[2024-05-11 17:24] LABS: APPEARANCE,URINE CLEAR (CLEAR); BILIRUBIN,URINE NEGATIVE (NEGATIVE); COLOR,URINE YELLOW (YELLOW); GLUCOSE,URINE 500 mg/dL (NEGATIVE); KETONES,URINE NEGATIVE (NEGATIVE); LEUKOCYTE ESTERASE,URINE NEGATIVE (NEGATIVE); NITRITE,URINE NEGATIVE (NEGATIVE); OCCULT BLOOD,URINE NEGATIVE (NEGATIVE); PROTEIN,URINE NEGATIVE (NEGATIVE); UROBILINOGEN,URINE 0.2 E.U./dL (0.2-1.0)
[2024-05-11 17:24] LABS: ESTIMATED GFR 105 mL/min (>=60)
[2024-05-11 17:37] VITALS: BP 129/75; PULSE 68
[2024-05-11 17:37] LABS: B-TYPE NATRIURETIC PEPTIDE,BNP 15 pg/mL (0-100)
[2024-05-11] MEDS: metFORMIN 500 MG Tab PO ONE (18:34)
== END 2024-05-11 18:40 | disposition home or self-care (01) ==
LOC: KA.ED 16:33
DX: R94.5 Abnormal results of liver function studies (principal); E83.42 Hypomagnesemia; E11.65 Type 2 diabetes mellitus with hyperglycemia; I10 Essential (primary) hypertension; E78.00 Pure hypercholesterolemia, unspecified; E66.9 Obesity, unspecified; E03.9 Hypothyroidism, unspecified; Z79.84 Long term (current) use of oral hypoglycemic drugs; Z79.890 Hormone replacement therapy; Z79.899 Other long term (current) drug therapy; Z86.16 Personal history of COVID-19
CPT/HCPCS: 71046; 80053; 81003; 82150; 82947; 83690; 83735; 83880; 84484; 85025; 85379; 93010; 99284; 99285; A9270

== ENCOUNTER 2024-12-22 17:54 | Emergency (ER) | payer MEDICAID ==
[2024-12-22] MEDS: Sodium Chloride 0.9% 1,000 ML IV ONE (18:13)
[2024-12-22] MEDS: Ondansetron 4 MG/2 ML SDV IVPUSH ONE (18:14)
[2024-12-22 18:23] LABS: BASOPHILS ABSOLUTE AUTO 0.04 10^3/uL (0.00-0.10); BASOPHILS PERCENT AUTO 0.6 % (0.0-1.0); EOSINOPHILS ABSOLUTE AUTO 0.23 10^3/uL (0.10-0.30); EOSINOPHILS PERCENT AUTO 3.6 % (1.0-3.0); HEMATOCRIT 48.3 % (37.0-47.0); IMMATURE GRAN ABSOLUTE AUTO 0.01 10^3/uL (0.00-0.04); IMMATURE GRAN PERCENT AUTO 0.2 % (0.0-0.4); LYMPHOCYTES ABSOLUTE AUTO 1.13 10^3/uL (1.00-4.00); LYMPHOCYTES PERCENT AUTO 17.6 % (20.0-40.0); MEAN CORPUSCULAR HEMOGLOBIN 29.4 pg (27.0-31.0); MEAN CORPUSCULAR HGB CONC 33.1 g/dL (32.0-36.0); MEAN CORPUSCULAR VOLUME 88.8 fL (82.0-92.0); MONOCYTES ABSOLUTE AUTO 0.83 10^3/uL (0.10-0.80); MONOCYTES PERCENT AUTO 12.9 % (2.0-8.0); NEUTROPHILS ABSOLUTE AUTO 4.17 10^3/uL (2.50-7.00); NEUTROPHILS PERCENT AUTO 65.1 % (50.0-70.0); PLATELET COUNT,PLT 221 10^3/uL (150-400); RED BLOOD CELL COUNT 5.44 10^6/uL (3.80-5.50); RED CELL DISTRIBUTION WIDTH 13.2 % (11.5-14.5); WHITE BLOOD CELL COUNT,WBC 6.41 10^3/uL (5.00-10.00)
[2024-12-22] MEDS: Albuterol/Ipratropium 3.0-0.5 MG/3 ML Neb Soln NEB ONE ×2 (18:39→21:19)
[2024-12-22 18:41] LABS: ALANINE AMINOTRANSFERASE,ALT 113 U/L (14-63); ALKALINE PHOSPHATASE 124 U/L (46-116); ANION GAP 16.1 mmol/L (5-15); ASPARTATE AMNIOTRANSFERASE,AST 118 U/L (15-37); BILIRUBIN TOTAL 0.7 mg/dL (0.2-1.0); BLOOD UREA NITROGEN,BUN 13 mg/dL (7-18); CALCIUM 9.4 mg/dL (8.7-10.3); CARBON DIOXIDE,CO2 24.8 mmol/L (21.0-32.0); CHLORIDE,CL 100 mmol/L (98-107); CREATININE 0.76 mg/dL (0.51-1.17); EST CRCL DRUG DOSING (CG) 77.92 mL/min; GLUCOSE RANDOM 204 mg/dL (70-140); POTASSIUM,K 3.9 mmol/L (3.5-5.1); PROTEIN TOTAL,TP 8.2 g/dL (6.4-8.2); SODIUM,NA 137 mmol/L (136-145)
[2024-12-22 18:43] LABS: ESTIMATED GFR 94 mL/min (>=60)
[2024-12-22] MEDS: methylPREDNISolone Sodium Succinate 125 MG/2 ML SDV IVPUSH ONE (21:20)
[2024-12-22] MEDS: cefTRIAXone 2 GM Vial IVPUSH ONE (21:26)
[2024-12-22 22:38] VITALS: BP 124/83; PULSE 93
== END 2024-12-22 22:40 | disposition home or self-care (01) ==
LOC: KA.ED 17:54
DX: J18.9 Pneumonia, unspecified organism (principal); J45.901 Unspecified asthma with (acute) exacerbation; I11.0 Hypertensive heart disease with heart failure; I50.9 Heart failure, unspecified; E11.9 Type 2 diabetes mellitus without complications; E03.9 Hypothyroidism, unspecified; Z86.16 Personal history of COVID-19; Z79.51 Long term (current) use of inhaled steroids; Z79.899 Other long term (current) drug therapy; Z79.890 Hormone replacement therapy; Z79.4 Long term (current) use of insulin
CPT/HCPCS: 36415; 71045; 80053; 84484; 85025; 85379; 87428-QW; 93005; 93010; 94640; 96361; 96374; 96375; 99284; 99285-25; A9270-GY; J0696; J2405; J2919; J7030